=== PATIENT | female | born 1990 | race Hispanic/Latino ===

== ENCOUNTER → 2018-09-15 | Emergency (ER) ==
--- OUTSIDE RECORDS SUMMARY | 2018-09-15 21:26 | XMS REPORT ---
[facility] Address Unknown Phone Unavailable Care Team Providers Care Obstetric Anaesthetist Name Role Phone Unavailable Unavailable Payers Payer Name Policy Type Policy Number Effective Date Expiration Date Problems This patient has no known problems. Allergies, Adverse Reactions, Alerts Allergy Name Allergy Type Status Severity Reaction(s) Onset Date Inactive Date Treating Clinician Comments No Known Allergies DA Active U 2018-01-23 00:00:00 Medications This patient has no known medications. Results Test Description Test Time Test Comments Text Results Atomic Results Result Comments - CT MAXIFAC W/CONTRAST 2018-08-08 22:10:00 Name: BRIAN SHEA [facility] : 1990 Age/S: 27 / F [address] [facility]: [id number] Loc: [place] [address] Phys: Fatou Prince NP Acct: [id number] Dis Date: Status: REG ER PHONE #: [phone] Exam Date: 08/08/2018 2153 FAX #: [phone] Reason: left mandible swelling EXAMS: CPT CODE: [id number] CT MAXIFAC W/CONTRAST 17538 REASON FOR EXAM: left mandible swelling EXAM ORDER DATE: 08/08/2018 8:10 PM Ordering MPeggy: Fatou Prince NP PROCEDURE: - CT MAXIFAC W/CONTRAST FINDINGS: CT images of the face were obtained with IV contrast at 2.5 mm thickness. Dose reduction techniques were applied The globes are intact. The orbital mathew are unremarkable. The nasal bone is unremarkable. The mandibles are within normal limits. No The visualized paranasal sinuses are well aerated. Soft tissue stranding in the left mandibular region with a small abscess collection near the left mandibular angle. Multiple inflammatory nodes seen within the neck. IMPRESSION: 1.8 cm abscess collection adjacent to the left ventricular angle at 2210 Reported and signed by: Ochoa Artis M.D. CC: Fatou Prince NP Technologist:Maria Isabel Worley RT(R); BETH Rod CTDI: DLP: Trnscb Date/Time: 08/08/2018 (2209) [email or web address] Orig Print D/T: S: 08/08/2018 (206) CTDI: DLP: PAGE 1 Signed Report BASIC METABOLIC PANEL 2018-08-08 21:15:00 SODIUM (test code=NA) 137 mmol/L 136-145 POTASSIUM (test code=K) 3.7 mmol/L 3.5-5.1 CHLORIDE (test code=CL) 102.0 mmol/L 98-107 CARBON DIOXIDE (test code=CO2) 25.0 mmol/L 21-32 ANION GAP (test code=GAP) 13.7 10-20 GLUCOSE (test code=GLU) 88 mg/dL 74-106 BLOOD UREA NITROGEN (test code=BUN) 12 mg/dL 7-18 GLOMERULAR FILTRATION RATE (test code=GFR) > 60 mL/min >=60 Estimated GFR by using Modified MDRD formula.Chronic kidney disease is defined as either kidney damageor GFR <60 mL/min/1.73 m2 for >3 months. CREATININE (test code=CREAT) 0.60 mg/dL 0.55-1.02 Note change in reference range due to change in reagent. BUN/CREATININE RATIO (test code=BUN/CREA) 18.9 10-20 CALCIUM (test code=CA) 8.8 mg/dL 8.5-10.1 HCG SERUM [id number] 21:15:00* Test Item Value Reference Range Comments HCG SERUM QUAL (test code=HCGQL) NEGATIVE NEGATIVE This HCGQL test is NOT applicable for MALE patients.Check with nurse about probable order error.If Tumor Marker Test needed, nurse should order test "HCGTU"(Test #550.37875) BASIC METABOLIC [id number] 21:14:00* Test Item Value Reference Range Comments SODIUM (test code=NA) 137 mmol/L 136-145 POTASSIUM (test code=K) 3.7 mmol/L 3.5-5.1 CHLORIDE (test code=CL) 102.0 mmol/L 98-107 CARBON DIOXIDE (test code=CO2) mmol/L 21-32 ANION GAP (test code=GAP) 10-20 GLUCOSE (test code=GLU) mg/dL 74-106 BLOOD UREA NITROGEN (test code=BUN) mg/dL 7-18 GLOMERULAR FILTRATION RATE (test code=GFR) mL/min >=60 CREATININE (test code=CREAT) mg/dL 0.55-1.02 BUN/CREATININE RATIO (test code=BUN/CREA) 10-20 CALCIUM (test code=CA) mg/dL 8.5-10.1 HCG SERUM [id number] 21:14:00* Test Item Value Reference Range Comments HCG SERUM QUAL (test code=HCGQL) NEGATIVE NEGATIVE This HCGQL test is NOT applicable for MALE patients.Check with nurse about probable order error.If Tumor Marker Test needed, nurse should order test "HCGTU"(Test #550.82151) BASIC METABOLIC [id number] 21:07:00* Test Item Value Reference Range Comments SODIUM (test code=NA) 137 mmol/L 136-145 POTASSIUM (test code=K) 3.7 mmol/L 3.5-5.1 CHLORIDE (test code=CL) 102.0 mmol/L 98-107 CARBON DIOXIDE (test code=CO2) mmol/L 21-32 ANION GAP (test code=GAP) 10-20 GLUCOSE (test code=GLU) mg/dL 74-106 BLOOD UREA NITROGEN (test code=BUN) mg/dL 7-18 GLOMERULAR FILTRATION RATE (test code=GFR) mL/min >=60 CREATININE (test code=CREAT) mg/dL 0.55-1.02 BUN/CREATININE RATIO (test code=BUN/CREA) 10-20 CALCIUM (test code=CA) mg/dL 8.5-10.1 HCG SERUM [id number] 21:07:00* Test Item Value Reference Range Comments HCG SERUM QUAL (test code=HCGQL) NEGATIVE CBC W/AUTO [id number] 20:45:00* Test Item Value Reference Range Comments WHITE BLOOD CELL (test code=WBC) 13.8 K/mm3 4.5-12.5 RED BLOOD CELL (test code=RBC) 4.61 mill/mm3 3.7-5.2 HEMOGLOBIN (test code=HGB) 13.4 gram/dL 11.5-15.5 HEMATOCRIT (test code=HCT) 41.5 % 36.0-46.0 MEAN CELL VOLUME (test code=MCV) 90.0 fL 80-98 MEAN CELL HGB (test code=MCH) 29.1 picogram 27.0-33.0 MEAN CELL HGB CONCETRATION (test code=MCHC) 32.3 gram/dL 33.0-36.0 RED CELL DISTRIBUTION WIDTH (test code=RDW) 13.5 % 11.6-16.2 RED CELL DISTRIBUTION WIDTH SD (test code=RDW-SD) 44.2 fL 37.0-51.0 PLATELET COUNT (test code=PLT) 329 K/mm3 150-450 MEAN PLATELET VOLUME (test code=MPV) 10.5 fL 6.7-11.0 NEUTROPHIL % (test code=NT%) 71.0 % 39.0-69.0 IMMATURE GRANULOCYTE % (test code=IG%) 0.3 % 0.0-5.0 LYMPHOCYTE % (test code=LY%) 20.5 % 25.0-55.0 MONOCYTE % (test code=MO%) 6.3 % 0.0-10.0 EOSINOPHIL % (test code=EO%) 1.7 % 0.0-5.0 BASOPHIL % (test code=BA%) 0.2 % 0.0-1.0 NUCLEATED RBC % (test code=NRBC%) 0.0 % 0-0 NEUTROPHIL # (test code=NT#) 9.77 K/mm3 1.8-7.7 IMMATURE GRANULOCYTE # (test code=IG#) 0.04 x10 3/uL 0-0.03 LYMPHOCYTE # (test code=LY#) 2.82 K/mm3 1.0-5.0 MONOCYTE # (test code=MO#) 0.86 K/mm3 0-0.8 EOSINOPHIL # (test code=EO#) 0.23 K/mm3 0.0-0.5 BASOPHIL # (test code=BA#) 0.03 K/mm3 0.0-0.2 NUCLEATED RBC # (test code=NRBC#) 0.00 K/mm3 0.0-0.1 MANUAL DIFF REQUIRED (test code=MDIFF) NO
== END | disposition left against medical advice (07) ==
LOC: FSED 21:24
DX: K08.89 Other specified disorders of teeth and supporting structures (principal)